=== PATIENT | female | born 1965 | race Caucasian/White ===

== ENCOUNTER 2016-12-24 10:12 | Emergency (ER) | payer BC ==
[~2016-12-24] VITALS: Ht 158.8 cm; Wt 84.5 kg
[2016-12-24 10:29] VITALS: TEMP 36.6; Ht 158.8 cm; Wt 84.5 kg
[2016-12-24] MEDS ORDERED: MECLIZINE HCL 25 MG TAB PO STA (11:18)
[2016-12-24] MEDS ORDERED: SODIUM CHLORIDE 0.9% 1000ML 1,000 ML IV STA (11:18)
[2016-12-24] MEDS ORDERED: ONDANSETRON INJ 2 MG/ML 2 ML VIAL IV STA (11:18)
--- NOTE | 2016-12-24 11:18 | EMERGENCY ROOM VISIT NOTE ---
History Report prepared by Abelardo: Josemanuel Mayes Under the Supervision of: Dr. Obdulia Conteh D.O. First contact with patient: 11:03 Chief Complaint: VERTIGO Stated Complaint: EXTREME VERTIGO, NAUSEA, DIAPHORESIS Nursing Triage Summary: Pt states she woke up, rolled over and became extremely dizzy and nausea, had to hold wall to get to bathroom. Diaphoretic. Denies head injury, neck pain, recent illness. History of Present Illness The patient is a 51 year old female who presents to the Emergency Room with complaints of vertigo that began this morning. She rates her symptoms severity severe. She notes that yesterday she felt completely normal and at baseline. Today, the patient woke up from sleep on her right side. She rolled over onto her left and became extremely dizzy. She tried to sit up and her dizziness worsened. She then became diaphoretic and nauseated. She stood up to go to the bathroom and describes that she felt like she was "drunk," without drinking alcohol. This has never happened to the patient before. After some time, she lied down on her bed and tried not to move. She states that helped slightly. She has a history of joint pain that began recently secondary to her being on her feet frequently. 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 She has a history of degenerative osteoarthritis as well. She denies any headache, ear pain, ear problems, chest pain, vomiting, rashes, abnormal urinary symptoms, diarrhea, melena, hematochezia, numbness, weakness, or changes in her menstrual cycle. She does not take any medications. She denies any recent travel. No recent illness, no recent trauma. Source of History: patient Onset: this morning Position: other (global) Symptom Intensity: severe Quality: other (Dizziness) Timing: constant Modifying Factors (Worsening): movement Modifying Factors (Relieving): rest Associated Symptoms: + diaphoresis, + nausea, No headache, No neck pain, No chest pain, No vomiting, No melena, No hematochezia, No diarrhea, No urinary symptoms, No weakness, No numbness Review of Systems See HPI for pertinent positives & negatives. A total of 10 systems reviewed and were otherwise negative. Past Medical & Surgical Medical Problems: (1) Osteoarthritis Family History Patient reports no known family medical history. Social History Smoking Status: Never Smoker Smokeless Tobacco Use: No Alcohol Use: none Drug Use: none Occupation Status: employed Current/Historical Medications Scheduled Ondasetron Odt (Zofran Odt), 4 MG SL Q6H Scheduled PRN Meclizine Hcl (Meclizine Hcl), 25 MG PO TID PRN for Dizziness Allergies Coded Allergies: Sulfa Antibiotics (Unverified Allergy, Severe, VOMIT,DIARRHEA, 12/24/16) Physical Exam Vital Signs Date Time Temp Pulse Resp B/P (MAP) Pulse Ox O2 Delivery O2 Flow Rate FiO2 12/24/16 13:35 72 20 106/76 96 12/24/16 12:46 64 20 104/67 96 Room Air 73 107/69 73 103/67 12/24/16 12:16 56 12/24/16 11:19 75 124/78 97 Room Air 80 120/79 72 106/76 12/24/16 10:29 36.6 72 17 130/81 100 Room Air Physical Exam GENERAL: Obese, alert, slightly uncomfortable appearing, well nourished, no distress, non-toxic EYE EXAM: normal conjunctiva, PERRL and EOM's grossly intact. Mild horizontal nystagmus, worse with rightward gaze. OROPHARYNX: no exudate, no erythema, lips, buccal mucosa, and tongue normal and mucous membranes are moist NECK: supple, no nuchal rigidity, no adenopathy, non-tender LUNGS: Clear to auscultation. Normal chest wall mechanics HEART: no murmurs, rubs or gallops. S1 normal and S2 normal ABDOMEN: abdomen soft, non-tender, normo-active bowel sounds, no masses, no rebound or guarding. BACK: Back is symmetrical on inspection and there is no deformity, no midline tenderness, no CVA tenderness. SKIN: no rashes and no bruising UPPER EXTREMITIES: upper extremities are grossly normal. LOWER EXTREMITIES: No pitting edema. NEURO EXAM: No facial droop. Normal sensorium, cranial nerves II-XII grossly intact, normal speech, no gross weakness of arms, no gross weakness of legs. No drift. Finger to nose intact. Gross sensation intact. Hints exam negative. Medical Decision & Procedures Laboratory Results 12/24/16 11:25 Red Blood Count 4.78, Mean Corpuscular Volume 86.2, Mean Corpuscular Hemoglobin 29.3, Mean Corpuscular Hemoglobin Concent 34.0, Mean Platelet Volume 11.8, Neutrophils (%) (Auto) 75.1, Lymphocytes (%) (Auto) 18.7, Monocytes (%) (Auto) 4.6, Eosinophils (%) (Auto) 0.8, Basophils (%) (Auto) 0.5, Neutrophils # (Auto) 4.52, Lymphocytes # (Auto) 1.13, Monocytes # (Auto) 0.28, Eosinophils # (Auto) 0.05, Basophils # (Auto) 0.03 12/24/16 11:25 Test 12/24/16 11:20 12/24/16 11:25 Urine Color YELLOW Urine Appearance CLEAR (CLEAR) Urine pH 8.5 (4.5-7.5) Urine Specific [place] 1.008 (1.000-1.030) Urine Protein NEG (NEG) Urine Glucose (UA) NEG (NEG) Urine Ketones NEG (NEG) Urine Occult Blood NEG (NEG) Urine Nitrite NEG (NEG) Urine Bilirubin NEG (NEG) Urine Urobilinogen NEG (NEG) Urine Leukocyte Esterase NEG (NEG) White Blood Count 6.03 K/uL (4.8-10.8) Red Blood Count 4.78 M/uL (4.2-5.4) Hemoglobin 14.0 g/dL (12.0-16.0) Hematocrit 41.2 % (37-47) Mean Corpuscular Volume 86.2 fL (80-100) Mean Corpuscular Hemoglobin 29.3 pg (25-34) Mean Corpuscular Hemoglobin Concent 34.0 g/dl (32-36) Platelet Count 183 K/uL (130-400) Mean Platelet Volume 11.8 fL (7.4-10.4) Neutrophils (%) (Auto) 75.1 % Lymphocytes (%) (Auto) 18.7 % Monocytes (%) (Auto) 4.6 % Eosinophils (%) (Auto) 0.8 % Basophils (%) (Auto) 0.5 % Neutrophils # (Auto) 4.52 K/uL (1.4-6.5) Lymphocytes # (Auto) 1.13 K/uL (1.2-3.4) Monocytes # (Auto) 0.28 K/uL (0.11-0.59) Eosinophils # (Auto) 0.05 K/uL (0-0.5) Basophils # (Auto) 0.03 K/uL (0-0.2) RDW Standard Deviation 42.0 fL (36.4-46.3) RDW Coefficient of Variation 13.2 % (11.5-14.5) Immature Granulocyte % (Auto) 0.3 % Immature Granulocyte # (Auto) 0.02 K/uL (0.00-0.02) Anion Gap 9.0 mmol/L (3-11) Est Creatinine Clear Calc Drug Dose 69.4 ml/min Estimated GFR () 76.6 Estimated GFR (Non- 66.1 BUN/Creatinine Ratio 13.2 (10-20) Calcium Level 8.9 mg/dl (8.5-10.1) Magnesium Level 2.3 mg/dl (1.8-2.4) Total Bilirubin 0.4 mg/dl (0.2-1) Aspartate Amino Transf (AST/SGOT) 17 U/L (15-37) Alanine Aminotransferase (ALT/SGPT) 27 U/L (12-78) Alkaline Phosphatase 55 U/L (45-117) Troponin I < 0.015 ng/ml (0-0.045) Total Protein 8.1 gm/dl (6.4-8.2) Albumin 4.0 gm/dl (3.4-5.0) Globulin 4.1 gm/dl (2.5-4.0) Albumin/Globulin Ratio 1.0 (0.9-2) Lyme Disease IgG Antibody NEG (NEG) Lyme Disease IgM Antibody NEG (NEG) Laboratory results per my review. Medications Administered Medications (Trade) Dose Ordered Sig/Olegario Route Start Time Stop Time Status Last Admin Dose Admin Meclizine HCl (Antivert Tab) 25 mg NOW STAT PO 12/24/16 11:18 12/24/16 11:22 DC 12/24/16 11:33 25 MG Ondansetron HCl (Zofran Inj) 4 mg NOW STAT IV 12/24/16 11:18 12/24/16 11:22 DC 12/24/16 11:33 4 MG Sodium Chloride 1,000 ml @ 999 mls/hr Q1H1M STAT IV 12/24/16 11:18 12/24/16 12:18 DC 12/24/16 11:34 999 MLS/HR ECG Indication: nausea, other (Dizziness) Rate (beats per minute): 72 Rhythm: sinus rhythm Findings: no acute ischemic change, no ectopy, other (Normal axis, normal intervals, low voltage throughout) ED Course 1103: The patient was evaluated in room C2. A complete history and physical exam was performed. 1118: Ordered Sodium Chloride 1000 ml @ 999 mls/hr IV, Zofran Inj 4 mg IV, Antivert Tab 25 mg PO 1257: The patient is feeling better at this time. She is able to get up and use the restroom. I will do the rest of her neurologic exam. 1315: Her neurologic exam was negative. She will now do a PO challenge for discharge. 1325: Upon reevaluation, the patient is feeling better. I discussed the findings and the treatment plan with the patient. She verbalizes agreement and understanding. She was discharged home. Medical Decision Differential diagnosis includes etiologies such as benign positional vertigo, dehydration, hypovolemia, anemia, tumor, infection, hypoglycemia, electrolyte abnormalities, cardiac sources, intracerebral event, toxicologic, neurologic, as well as others were entertained. Given patient's onset of symptoms, and other negative exam findings for a central cause, feel patient's dizziness most likely related to a peripheral cause of vertigo, likely benign positional peripheral vertigo. Patiently markedly improved here with a dose of meclizine, labs otherwise reassuring. Did not feel patient warranted neuro imaging at this time. Discussed with patient use medications, need for close follow-up with family doctor, possible alternative diagnoses, symptoms to watch and return for, she verbalized understanding was agreeable with plan. Doubt CVA, dissection, meningitis/encephalitis, Mnire discussed disease, CPA tumor, no evidence of otitis media, doubt bacteremia/sepsis, doubt cardiac or vascular etiology. Impression Primary Impression: Dizziness Scribe Attestation The scribe's documentation has been prepared under my direction and personally reviewed by me in its entirety. I confirm that the note above accurately reflects all work, treatment, procedures, and medical decision making performed by me. Departure Information Dispostion Home / Self-Care Prescriptions Ondasetron Odt (ZOFRAN ODT) 4 Mg Tab 4 MG SL Q6H for Nausea, #20 TAB Prov: Obdulia Conteh, DO 12/24/16 Meclizine Hcl (MECLIZINE HCL) 25 Mg Tab 25 MG PO TID Y for Dizziness, #20 TAB Prov: Obdulia Conteh, DO 12/24/16 Referrals Bj Gracia M.D. (PCP) Forms HOME CARE DOCUMENTATION FORM, IMPORTANT VISIT INFORMATION, WORK / SCHOOL INSTRUCTIONS Patient Instructions My [facility] Additional Instructions Please follow up with her family doctor as a precaution. You may use the meclizine and Zofran as prescribed if you have any recurrent symptoms. If you develop worsening dizziness, develop headaches, vision changes, vomiting, fevers , chest pain or trouble breathing or have any other new and concerning symptoms , please return to the emergency room. Please drink plenty of water to stay well-hydrated. Please be cautious over the next several days with any changes in position, as this could exacerbate symptoms again.
[2016-12-24 11:46] LABS: URINE APPEARANCE CLEAR (CLEAR); URINE BILIRUBIN NEG (NEG); URINE COLOR YELLOW; URINE NITRITE NEG (NEG); URINE PH 8.5 (4.5-7.5); URINE SPECIFIC GRAVITY 1.008 (1.000-1.030); UROBILINOGEN NEG (NEG)
[2016-12-24 11:47] LABS: MANUAL MICROSCOPIC REQUIRED? NO; REVIEW REQ? NO
[2016-12-24 11:47] LABS: BASO % 0.5 %; BASO ABS # 0.03 K/uL (0-0.2); COMPLETE YES; EOS % 0.8 %; HEMATOCRIT 41.2 % (37-47); IG% 0.3 %; LYMPH % 18.7 %; LYMPH ABS # 1.13 K/uL (1.2-3.4); MEAN CELL VOLUME 86.2 fL (80-100); MEAN CORPUSCULAR HEMOGLOBIN 29.3 pg (25-34); MEAN PLATELET VOLUME 11.8 fL (7.4-10.4); MONO % 4.6 %; NEUT % 75.1 %; PLATELET COUNT 183 K/uL (130-400); RED BLOOD COUNT 4.78 M/uL (4.2-5.4); WHITE BLOOD COUNT 6.03 K/uL (4.8-10.8)
[2016-12-24 12:06] LABS: ALT/SGPT 27 U/L (12-78); AST/SGOT 17 U/L (15-37); BLOOD UREA NITROGEN 13 mg/dl (7-18); BUN/CREATININE RATIO 13.2 (10-20); CALCIUM 8.9 mg/dl (8.5-10.1); CARBON DIOXIDE 26 mmol/L (21-32); CHLORIDE 107 mmol/L (98-107); GLUCOSE 106 mg/dl (70-99); MAGNESIUM 2.3 mg/dl (1.8-2.4); POTASSIUM 3.7 mmol/L (3.5-5.1); SODIUM 142 mmol/L (136-145)
[2016-12-24 12:11] LABS: ALKALINE PHOSPHATASE 55 U/L (45-117)
[2016-12-24 12:39] LABS: LYME DISEASE AB IGM NEG (NEG)
[2016-12-24 12:43] LABS: LYME DISEASE AB IGG NEG (NEG)
[2016-12-24] MEDS ORDERED: MECL1TAB42 PO (13:22)
[2016-12-24] MEDS ORDERED: ONDA4TAB10 SL (13:22)
[2016-12-24 13:35] VITALS: BP 106/76; PULSE 72; O2SAT 96
== END 2016-12-24 13:41 | disposition home or self-care (01) ==
LOC: C.EDB 10:16 → C.EDC 13:41
DX: R42 Dizziness and giddiness (principal); M19.90 Unspecified osteoarthritis, unspecified site; Z88.2 Allergy status to sulfonamides